=== PATIENT | male | born 1955 | race Caucasian/White ===

== ENCOUNTER 2019-12-29 08:38 | Outpatient (REF) | payer MEDICARE, SELFPAY ==
--- NOTE | 2019-12-29 08:49 | US_ITS ---
EXAMINATION: US RETROPERITONEAL LIMITED (AORTA) CLINICAL INFORMATION: AAA screening. COMPARISON: None TECHNIQUE: Ni-scale, color Doppler and spectral Doppler evaluation of the abdominal aorta. FINDINGS: The measurements of the aorta in maximum AP and transverse dimensions respectively are as follows: Proximal: 2.7 x 3.1 cm. Mid: 2.2 x 2.8 cm. Distal: 1.8 x 2.3 cm. PSV: 123 cm/s. The measurements of the common iliac arteries in maximum AP and TRV dimensions are as follows: Right Common Iliac Artery: 1.2 x 1.1 cm. Left Common Iliac Artery: 1.2 x 1.0 cm. Incidental finding of the right hepatic lobe cyst measuring 2.0 x 3.3 x 2.2 cm US/US aorta IMPRESSION: No evidence of AAA. Incidental finding of a right hepatic cyst.
== END 2019-12-29 08:39 | disposition home or self-care (01) ==
LOC: HO.US 08:38
PROVIDERS: PCP Internal Medicine; Visit Provider Internal Medicine
DX: Z13.6 Encounter for screening for cardiovascular disorders (principal)
CPT/HCPCS: 76775

== ENCOUNTER 2020-04-13 09:40 | Outpatient (REF) | payer MEDICARE, SELFPAY ==
[2020-04-13 10:26] LABS: Estimated Average Glucose 160 mg/dL; Hemoglobin A1c % 7.2 %
[2020-04-13 10:47] LABS: Alanine Aminotransferase 19 U/L (0-40); Albumin Level 4.4 g/dL (3.5-5.0); Alkaline Phosphatase 51 U/L (39-117); Anion Gap 13 (12-20); Aspartate Amino Transferase 14 U/L (5-37); Bilirubin Total 0.7 mg/dL (0.0-1.0); Blood Urea Nitrogen 17 mg/dL (9-16); Calcium 9.2 mg/dL (8.4-10.2); Carbon Dioxide 26 mmol/L (22-29); Chloride 103 mmol/L (96-108); Cholesterol 149 mg/dL; Estimated Glomerular Filt Rate > 60; Glucose Random 203 mg/dL (60-115); HDL Cholesterol 45 mg/dL; LDL Cholesterol Calculated 74 mg/dl; Potassium 4.1 mmol/L (3.3-5.1); Sodium 138 mmol/L (135-145); Triglycerides 152 mg/dL
[2020-04-13 10:47] LABS: Creatinine Urine 118.79 mg/dL
== END 2020-04-13 09:41 | disposition home or self-care (01) ==
LOC: HO.LAB 09:40
PROVIDERS: PCP Internal Medicine; Visit Provider Internal Medicine Endocrinology, Diabetes & Metabolism
DX: E11.9 Type 2 diabetes mellitus without complications (principal)
CPT/HCPCS: 36415; 80053; 80061; 82043; 83036

== ENCOUNTER 2020-07-25 10:46 | Outpatient (REF) | payer MEDICARE, SELFPAY ==
[2020-07-25 12:01] LABS: Estimated Average Glucose 186 mg/dL; Hemoglobin A1c % 8.1 %
[2020-07-25 12:22] LABS: Alanine Aminotransferase 19 U/L (0-40); Albumin Level 4.3 g/dL (3.5-5.0); Alkaline Phosphatase 63 U/L (39-117); Anion Gap 12 (12-20); Aspartate Amino Transferase 13 U/L (5-37); Bilirubin Total 0.6 mg/dL (0.0-1.0); Blood Urea Nitrogen 18 mg/dL (9-16); Calcium 9.1 mg/dL (8.4-10.2); Carbon Dioxide 26 mmol/L (22-29); Chloride 105 mmol/L (96-108); Estimated Glomerular Filt Rate > 60; Glucose Random 225 mg/dL (60-115); Potassium 3.6 mmol/L (3.3-5.1); Sodium 139 mmol/L (135-145); Total Protein 6.7 g/dL (6.5-8.0)
== END 2020-07-25 10:47 | disposition home or self-care (01) ==
LOC: HO.LAB 10:46
PROVIDERS: Absent Provider Internal Medicine Endocrinology, Diabetes & Metabolism; PCP Internal Medicine; Visit Provider Internal Medicine
DX: E11.9 Type 2 diabetes mellitus without complications (principal); K21.9 Gastro-esophageal reflux disease without esophagitis
CPT/HCPCS: 36415; 80053; 83036

== ENCOUNTER 2020-11-01 10:14 | Outpatient (REF) | payer MEDICARE, SELFPAY ==
[2020-11-01 10:43] LABS: MANUAL DIFF FLAG NO
[2020-11-01 10:46] LABS: Basophils Percent Auto 0.6 % (0-2); Eosinophils Absolute Auto 0.3 X10*3/uL (0.0-0.4); Hematocrit 40.8 % (42-52); Hemoglobin 14.6 g/dl (14.0-18.0); Imm Gran Abs Auto 0.01 X10*3/uL (0.00-0.03); Imm Gran Pct Auto 0.2 % (0.0-0.4); Lymphocytes Absolute Auto 1.1 X10*3/uL (1.2-4.9); Lymphocytes Percent Auto 20.7 % (20-40); Mean Corpuscular HGB Conc 35.8 g/dl (31.0-36.0); Mean Corpuscular Hemoglobin 33.2 pg (27.0-33.0); Mean Corpuscular Volume 92.7 fL (80-98); Mean Platelet Volume 10.7 fL (9.4-12.4); Monocytes Absolute Auto 0.5 X10*3/uL (0.1-1.2); Monocytes Percent Auto 8.5 % (2-11); Neutrophils Absolute Auto 3.5 X10*3/uL (2.0-8.3); Platelet Count 136 X10*3/uL (160-400); Red Cell Distribution Width 12.7 % (11.0-16.0); White Blood Count 5.4 X10*3/uL (4.8-10.8)
[2020-11-01 10:54] LABS: Estimated Average Glucose 154 mg/dL
[2020-11-01 11:10] LABS: Alanine Aminotransferase 28 U/L (0-40); Albumin Level 4.3 g/dL (3.5-5.0); Alkaline Phosphatase 55 U/L (39-117); Anion Gap 13 (12-20); Aspartate Amino Transferase 21 U/L (5-37); Bilirubin Total 0.6 mg/dL (0.0-1.0); Blood Urea Nitrogen 15 mg/dL (9-16); Calcium 9.4 mg/dL (8.4-10.2); Carbon Dioxide 26 mmol/L (22-29); Chloride 105 mmol/L (96-108); Cholesterol 133 mg/dL; Estimated Glomerular Filt Rate > 60; Glucose Random 190 mg/dL (60-115); HDL Cholesterol 43 mg/dL; LDL Cholesterol Calculated 58 mg/dl; Potassium 3.9 mmol/L (3.3-5.1); Sodium 140 mmol/L (135-145); Total Protein 6.8 g/dL (6.5-8.0); Triglycerides 164 mg/dL
[2020-11-01 11:30] LABS: Thyroid Stimulating Hormone 2.45 uIU/mL (0.32-4.0)
[2020-11-01 12:30] LABS: Creatinine Urine 105.15 mg/dL; Microalbum/Creatinine Ratio Ur 16.1 ug/mg cr
== END 2020-11-01 10:15 | disposition home or self-care (01) ==
LOC: HO.LAB 10:14
PROVIDERS: PCP Internal Medicine; Visit Provider Internal Medicine
DX: E78.2 Mixed hyperlipidemia (principal); I10 Essential (primary) hypertension; E11.9 Type 2 diabetes mellitus without complications
CPT/HCPCS: 36415; 80053; 80061; 82043; 83036; 84443; 85025

== ENCOUNTER 2021-02-14 10:20 | Outpatient (REF) | payer MEDICARE, SELFPAY ==
[2021-02-14 11:37] LABS: MANUAL DIFF FLAG NO
[2021-02-14 11:48] LABS: Basophils Absolute Auto 0.1 X10*3/uL (0.0-0.2); Basophils Percent Auto 0.9 % (0-2); Eosinophils Absolute Auto 0.2 X10*3/uL (0.0-0.4); Eosinophils Percent Auto 3.6 % (0-4); Hematocrit 43.2 % (42.0-52.0); Hemoglobin 15.4 g/dl (14.0-18.0); Imm Gran Abs Auto 0.02 X10*3/uL (0.00-0.03); Imm Gran Pct Auto 0.3 % (0.0-0.4); Lymphocytes Absolute Auto 1.4 X10*3/uL (1.2-4.9); Lymphocytes Percent Auto 20.1 % (20-40); Mean Corpuscular HGB Conc 35.6 g/dl (31.0-36.0); Mean Corpuscular Volume 92.5 fL (80.0-98.0); Mean Platelet Volume 11.6 fL (9.4-12.4); Monocytes Absolute Auto 0.5 X10*3/uL (0.1-1.2); Monocytes Percent Auto 7.2 % (2-11); Neutrophils Absolute Auto 4.6 x10*3/uL (2.0-8.3); Neutrophils Percent Auto 67.9 % (45-73); Platelet Count 159 X10*3/uL (160-400); Red Blood Count 4.67 X10*6/uL (4.60-5.80); Red Cell Distribution Width 12.5 % (11.0-16.0); White Blood Count 6.7 X10*3/uL (4.8-10.8)
[2021-02-14 12:15] LABS: Alanine Aminotransferase 21 U/L (0-40); Albumin Level 4.3 g/dL (3.5-5.0); Alkaline Phosphatase 53 U/L (39-117); Anion Gap 15 (12-20); Aspartate Amino Transferase 16 U/L (5-37); Bilirubin Total 0.7 mg/dL (0.0-1.0); Blood Urea Nitrogen 16 mg/dL (9-16); Calcium 9.4 mg/dL (8.4-10.2); Carbon Dioxide 25 mmol/L (22-29); Chloride 104 mmol/L (96-108); Estimated Glomerular Filt Rate > 60; Glucose Random 188 mg/dL (60-115); Potassium 3.8 mmol/L (3.3-5.1); Sodium 140 mmol/L (135-145)
[2021-02-14 12:20] LABS: Prostate Specific Antigen 3.94 ng/mL (<0.05-4.0)
[2021-02-14 12:21] LABS: Creatinine Urine 139.01 mg/dL; Microalbum/Creatinine Ratio Ur 51.7 ug/mg cr; Protein/Creatinine Ratio, Ur 0.12 (<0.2); Total Protein Urine Random 17 mg/dL (<12)
[2021-02-14 14:05] LABS: Estimated Average Glucose 166 mg/dL; Hemoglobin A1c % 7.4 %
== END 2021-02-14 10:21 | disposition home or self-care (01) ==
LOC: HO.HMGCLDS 10:20
PROVIDERS: Absent Provider Urology; PCP Internal Medicine; Visit Provider Internal Medicine
DX: Z12.5 Encounter for screening for malignant neoplasm of prostate (principal); I10 Essential (primary) hypertension; E11.9 Type 2 diabetes mellitus without complications; R97.20 Elevated prostate specific antigen [PSA]
CPT/HCPCS: 36415; 80053; 82043; 83036; 84153; 84156; 85025

== ENCOUNTER 2021-05-23 09:44 | Outpatient (REF) | payer MEDICARE, SELFPAY ==
[2021-05-23 12:01] LABS: Estimated Average Glucose 154 mg/dL
== END 2021-05-23 09:45 | disposition home or self-care (01) ==
LOC: HO.HMGCLDS 09:44
PROVIDERS: PCP Internal Medicine; Visit Provider Internal Medicine Endocrinology, Diabetes & Metabolism
DX: E11.65 Type 2 diabetes mellitus with hyperglycemia (principal)
CPT/HCPCS: 36415; 83036

== ENCOUNTER 2021-08-05 10:47 | Outpatient (REF) | payer MEDICARE, SELFPAY ==
[2021-08-05 13:37] LABS: MANUAL DIFF FLAG NO
[2021-08-05 13:42] LABS: Basophils Percent Auto 0.6 % (0-2); Eosinophils Absolute Auto 0.2 X10*3/uL (0.0-0.4); Eosinophils Percent Auto 3.2 % (0-4); Hematocrit 41.8 % (42.0-52.0); Hemoglobin 14.4 g/dl (14.0-18.0); Imm Gran Abs Auto 0.03 X10*3/uL (0.00-0.03); Imm Gran Pct Auto 0.4 % (0.0-0.4); Lymphocytes Absolute Auto 1.5 X10*3/uL (1.2-4.9); Lymphocytes Percent Auto 21.3 % (20-40); Mean Corpuscular HGB Conc 34.4 g/dl (31.0-36.0); Mean Corpuscular Hemoglobin 32.1 pg (27.0-33.0); Mean Corpuscular Volume 93.1 fL (80.0-98.0); Mean Platelet Volume 11.7 fL (9.4-12.4); Monocytes Absolute Auto 0.4 X10*3/uL (0.1-1.2); Monocytes Percent Auto 6.5 % (2-11); Neutrophils Absolute Auto 4.6 x10*3/uL (2.0-8.3); Platelet Count 161 X10*3/uL (160-400); Red Blood Count 4.49 X10*6/uL (4.60-5.80); Red Cell Distribution Width 13.1 % (11.0-16.0); White Blood Count 6.8 X10*3/uL (4.8-10.8)
[2021-08-05 14:13] LABS: Thyroid Stimulating Hormone 2.36 uIU/mL (0.32-4.0)
[2021-08-05 14:26] LABS: Alanine Aminotransferase 19 U/L (0-40); Albumin Level 4.2 g/dL (3.5-5.0); Alkaline Phosphatase 49 U/L (39-117); Anion Gap 15 (12-20); Aspartate Amino Transferase 14 U/L (5-37); Bilirubin Total 0.7 mg/dL (0.0-1.0); Blood Urea Nitrogen 19 mg/dL (9-16); Calcium 9.5 mg/dL (8.4-10.2); Carbon Dioxide 24 mmol/L (22-29); Chloride 106 mmol/L (96-108); Cholesterol 118 mg/dL; Estimated Glomerular Filt Rate > 60; Glucose Random 149 mg/dL (60-115); HDL Cholesterol 39 mg/dL; LDL Cholesterol Calculated 57 mg/dl; Magnesium 1.4 mg/dL (1.6-2.6); Sodium 141 mmol/L (135-145); Total Protein 6.8 g/dL (6.5-8.0); Triglycerides 113 mg/dL
[2021-08-05 14:34] LABS: Creatinine Urine 179.54 mg/dL; Microalbum/Creatinine Ratio Ur 11.6 ug/mg cr
== END 2021-08-05 10:48 | disposition home or self-care (01) ==
LOC: HO.HMGCLDS 10:47
PROVIDERS: Absent Provider Internal Medicine Endocrinology, Diabetes & Metabolism; Visit Provider Internal Medicine
DX: E11.9 Type 2 diabetes mellitus without complications (principal); I10 Essential (primary) hypertension
CPT/HCPCS: 36415; 80053; 80061; 82043; 83735; 84443; 85025

== ENCOUNTER 2021-08-25 10:50 | Outpatient (REF) | payer MEDICARE, SELFPAY ==
[2021-08-25 14:10] LABS: Estimated Average Glucose 146 mg/dL; Hemoglobin A1c % 6.7 %
[2021-08-25 14:17] LABS: C Reactive Protein 0.42 mg/dL (< or = 0.50); Magnesium 1.5 mg/dL (1.6-2.6)
[2021-08-25 14:40] LABS: Erythrocyte Sedimentation Rate 9 MM/HR (0-15)
== END 2021-08-25 10:51 | disposition home or self-care (01) ==
LOC: HO.HMGCLDS 10:50
PROVIDERS: Visit Provider Internal Medicine
DX: E11.9 Type 2 diabetes mellitus without complications (principal); E83.42 Hypomagnesemia; M79.10 Myalgia, unspecified site
CPT/HCPCS: 36415; 82550; 83036; 83735; 85652; 86140

== ENCOUNTER 2021-09-05 11:22 | Outpatient (REF) | payer MEDICARE, SELFPAY ==
[2021-09-05 14:26] LABS: Vitamin D 25-OH Total 47.1 ng/mL (>30)
[2021-09-07 05:12] LABS: Lyme Abs Screen <0.90 index
== END 2021-09-05 11:23 | disposition home or self-care (01) ==
LOC: HO.HMGCLDS 11:22
PROVIDERS: PCP Internal Medicine; Visit Provider Internal Medicine
DX: M79.10 Myalgia, unspecified site (principal); E55.9 Vitamin D deficiency, unspecified
CPT/HCPCS: 36415; 82306; 86617; 86618

== ENCOUNTER 2021-10-06 13:13 | Outpatient (REF) | payer MEDICARE, SELFPAY ==
[2021-10-06 15:20] LABS: Magnesium 1.5 mg/dL (1.6-2.6)
== END 2021-10-06 13:14 | disposition home or self-care (01) ==
LOC: HO.HMGCLDS 13:13
PROVIDERS: PCP Internal Medicine; Visit Provider Internal Medicine
DX: I10 Essential (primary) hypertension (principal); E83.52 Hypercalcemia
CPT/HCPCS: 36415; 83735

== ENCOUNTER 2022-09-07 11:42 | Outpatient (REF) | payer MEDICARE, SELFPAY ==
[2022-09-07 14:53] LABS: Alanine Aminotransferase 12 U/L (0-40); Albumin Level 4.1 g/dL (3.5-5.0); Alkaline Phosphatase 60 U/L (39-117); Anion Gap 15 (12-20); Aspartate Amino Transferase 9 U/L (5-37); Bilirubin Direct 0.3 mg/dL (0.0-0.5); Bilirubin Total 0.9 mg/dL (0.0-1.0); Blood Urea Nitrogen 14 mg/dL (9-16); Calcium 9.8 mg/dL (8.4-10.2); Carbon Dioxide 25 mmol/L (22-29); Chloride 104 mmol/L (96-108); Estimated Glomerular Filt Rate > 60; Glucose Random 199 mg/dL (60-115); Potassium 3.6 mmol/L (3.3-5.1); Sodium 140 mmol/L (135-145); Total Protein 7.2 g/dL (6.5-8.0)
== END 2022-09-07 11:43 | disposition home or self-care (01) ==
LOC: HO.HMGCLDS 11:42
PROVIDERS: PCP Internal Medicine; Visit Provider Internal Medicine
DX: R10.9 Unspecified abdominal pain (principal)
CPT/HCPCS: 36415; 80048; 80076; 85027; 85652

== ENCOUNTER 2023-07-02 08:12 | Day surgery (SDC) | payer MEDICARE, SELFPAY ==
[2023-07-01 07:55] VITALS: BMI 34.4
[2023-07-02 08:51] VITALS: BMI 34.4
--- NOTE | 2023-07-02 08:57 | HO.ANESPROP2 ---
FORMERLY [facility], LATER [facility] Active Problems Active Problems: All Active Problems Abdominal pain (Acute) Tinea corporis (Acute) Past Medical History Medical History History of deviated nasal septum Prostate cancer Sleep apnea Vertigo Sinusitis GERD (gastroesophageal reflux disease) Diabetes Irregular heartbeat Hyperlipidemia HTN (hypertension) Tubular adenoma Functional capacity: independent ambulation Family History Family history of problems with anesthesia: No Surgical History Surgical History Hx of cataract surgery Hx of umbilical hernia repair Hx of LASIK History of tonsillectomy and adenoidectomy Hx of cholecystectomy History of esophagogastroduodenoscopy (EGD) H/O colonoscopy History of Problems with Anesthesia: No Social History Social History Patient Tobacco Use Status: Former Tobacco user Are you DNR?: No Advance Directives: No Advance Directives Information Provided: No Advance Directives on File: No Nutrition Risks: No Nutritional Risk Meds Allergies Allergy/AdvReac Type Severity Reaction Status Date / Time canagliflozin [From INVOKANA] Allergy Intermediate MUSCLE/JOINT Unverified 09/07/22 11:57 PAIN irbesartan [IRBESARTAN] Allergy Intermediate MUSCLE/JOINT Unverified 09/07/22 11:57 PAIN lisinopril [LISINOPRIL] Allergy Intermediate ABDOMINAL Unverified 09/07/22 11:57 PAIN losartan [LOSARTAN] Allergy Intermediate MUSCLE/JOINT Unverified 09/07/22 11:57 PAIN Penicillins [PENICILLINS] Allergy Intermediate UNKNOWN Unverified 09/07/22 11:57 pravastatin [PRAVASTATIN] Allergy Intermediate ABDOMINAL Unverified 09/07/22 11:57 PAIN rosuvastatin [From CRESTOR] Allergy Intermediate DIARRHEA Unverified 09/07/22 11:57 simvastatin [SIMVASTATIN] Allergy Intermediate ABDOMINAL Unverified 09/07/22 11:57 PAIN penicillin V Allergy Unknown Unknown Verified 09/07/22 11:57 Active Medications: Current Medications Sodium Biphosphate/Sodium Phosphate (Sodium Phosphate,[place]-Dibasic 133 Ml Enema) 133 ml [place] ONCE PRN PRN Reason: Poor Colonoscopy Prep Results Home Medications ?Medication ?Instructions ?Recorded ?Confirmed ?Last Taken ?Type amlodipine 2.5 mg tablet 2.5 mg PO DAILY 08/17/22 07/01/23 Unknown History atorvastatin 10 mg tablet 10 mg PO DAILY 08/17/22 07/01/23 Unknown History blood sugar diagnostic (OneTouch #10 ea 08/17/22 09/07/22 Unknown History Verio test strips) bupropion HCl 150 mg tablet,12 hr 150 mg PO BID 08/17/22 07/01/23 Unknown History sustained-release chlorthalidone 25 mg tablet 25 mg PO DAILY 08/17/22 09/07/22 Unknown History fluticasone propionate 50 1 spray intranasal DAILY 08/17/22 07/01/23 Unknown History mcg/actuation nasal spray,suspension insulin degludec 100 unit/mL (3 unit subcut 08/17/22 09/07/22 Unknown History mL) subcutaneous pen (Tresiba FlexTouch U-100 insulin) meclizine 25 mg tablet 25 mg PO TID PRN dizziness 08/17/22 07/01/23 Unknown History nadolol 40 mg tablet 40 mg PO DAILY 08/17/22 07/01/23 07/02/23 History omeprazole 20 mg capsule,delayed 20 mg PO DAILY 08/17/22 07/01/23 Unknown History release pen needle, diabetic 32 gauge x #50 ea 08/17/22 09/07/22 Unknown History (BD [employer] 2nd Gen Pen Needle) tamsulosin 0.4 mg capsule 0.4 mg PO DAILY 08/17/22 07/01/23 Unknown History Suphedrin 07/01/23 07/01/23 Unknown History aspirin 81 mg tablet,delayed 81 mg PO DAILY 07/01/23 07/01/23 06/25/23 History release cetirizine 10 mg tablet (Zyrtec) 10 mg PO DAILY 07/01/23 07/01/23 Unknown History cyanocobalamin (vitamin B-12) 50 50 mcg PO DAILY 07/01/23 07/01/23 Unknown History mcg tablet (Vitamin B-12) glucosamine sulf dipot cap PO 07/01/23 Unknown History chlr,msm,chond 550 mg-C 30 mg-umair 1 mg capsule (Glucosamine Chondroitin) gsinomoj-uoyaysuv-wtsks acid 400 1 tab PO DAILY 07/01/23 07/01/23 Unknown History mcg-vit K 20 mcg-lycop 300 mcg tablet Exam Height,Weight and Vital Signs: Height 6 ft Weight 115.212 kg Airway Mallampati Class: III TM Dist: >3cm Neck ROM: Full Heart: irreg Lungs: CTA Assessment and Plan Assessment Anesthesia Assessment: Anesthesia Plan Discussed Final Anesthetic Review Family History of Problems with Anesthesia: No History of Problems with Anesthesia: No NPO: Yes ASA Class: III Final Preanesthetic Review: Meds/Allgs Chart Reviewed, Consent Obtained/Reviewed and Anes Risks/Benef Reviewed Patient Risk: Intermediate Procedure Risk: Low Anesthetic Plan Anesthetic Plan: MAC: Disposition: Standard PACU
--- NOTE | 2023-07-02 09:12 | P.CONAN_ITS ---
[facility] Active Problems Active Problems: All Active Problems Abdominal pain (Acute) Tinea corporis (Acute) Past Medical History Medical History History of deviated nasal septum Prostate cancer Sleep apnea Vertigo Sinusitis GERD (gastroesophageal reflux disease) Diabetes Irregular heartbeat Hyperlipidemia HTN (hypertension) Tubular adenoma Functional capacity: independent ambulation Family History Family history of problems with anesthesia: No Surgical History Surgical History Hx of cataract surgery Hx of umbilical hernia repair Hx of LASIK History of tonsillectomy and adenoidectomy Hx of cholecystectomy History of esophagogastroduodenoscopy (EGD) H/O colonoscopy History of Problems with Anesthesia: No Social History Social History Patient Tobacco Use Status: Former Tobacco user Are you DNR?: No Advance Directives: No Advance Directives Information Provided: No Advance Directives on File: No Nutrition Risks: No Nutritional Risk Meds Allergies Allergy/AdvReac Type Severity Reaction Status Date / Time canagliflozin [From INVOKANA] Allergy Intermediate MUSCLE/JOINT Verified 07/02/23 09:36 PAIN irbesartan [IRBESARTAN] Allergy Intermediate MUSCLE/JOINT Verified 07/02/23 09:36 PAIN lisinopril [LISINOPRIL] Allergy Intermediate ABDOMINAL Verified 07/02/23 09:36 PAIN losartan [LOSARTAN] Allergy Intermediate MUSCLE/JOINT Verified 07/02/23 09:36 PAIN Penicillins [PENICILLINS] Allergy Intermediate UNKNOWN Verified 07/02/23 09:36 pravastatin [PRAVASTATIN] Allergy Intermediate ABDOMINAL Verified 07/02/23 09:36 PAIN rosuvastatin [From CRESTOR] Allergy Intermediate DIARRHEA Verified 07/02/23 09:36 simvastatin [SIMVASTATIN] Allergy Intermediate ABDOMINAL Verified 07/02/23 09:36 PAIN penicillin V Allergy Unknown Unknown Verified 07/02/23 09:36 Active Medications: Current Medications Sodium Biphosphate/Sodium Phosphate (Sodium Phosphate,[place]-Dibasic 133 Ml Enema) 133 ml [place] ONCE PRN PRN Reason: Poor Colonoscopy Prep Results Home Medications ?Medication ?Instructions ?Recorded ?Confirmed ?Last Taken ?Type amlodipine 2.5 mg tablet 2.5 mg PO DAILY 08/17/22 07/01/23 Unknown History atorvastatin 10 mg tablet 10 mg PO DAILY 08/17/22 07/01/23 Unknown History blood sugar diagnostic (OneTouch #10 ea 08/17/22 09/07/22 Unknown History Verio test strips) bupropion HCl 150 mg tablet,12 hr 150 mg PO BID 08/17/22 07/01/23 Unknown History sustained-release chlorthalidone 25 mg tablet 25 mg PO DAILY 08/17/22 09/07/22 Unknown History fluticasone propionate 50 1 spray intranasal DAILY 08/17/22 07/01/23 Unknown History mcg/actuation nasal spray,suspension insulin degludec 100 unit/mL (3 unit subcut 08/17/22 09/07/22 Unknown History mL) subcutaneous pen (Tresiba FlexTouch U-100 insulin) meclizine 25 mg tablet 25 mg PO TID PRN dizziness 08/17/22 07/01/23 Unknown History nadolol 40 mg tablet 40 mg PO DAILY 08/17/22 07/01/23 07/02/23 History omeprazole 20 mg capsule,delayed 20 mg PO DAILY 08/17/22 07/01/23 Unknown History release pen needle, diabetic 32 gauge x #50 ea 08/17/22 09/07/22 Unknown History (BD [employer] 2nd Gen Pen Needle) tamsulosin 0.4 mg capsule 0.4 mg PO DAILY 08/17/22 07/01/23 Unknown History Suphedrin 07/01/23 07/01/23 Unknown History aspirin 81 mg tablet,delayed 81 mg PO DAILY 07/01/23 07/01/23 06/25/23 History release cetirizine 10 mg tablet (Zyrtec) 10 mg PO DAILY 07/01/23 07/01/23 Unknown History cyanocobalamin (vitamin B-12) 50 50 mcg PO DAILY 07/01/23 07/01/23 Unknown History mcg tablet (Vitamin B-12) glucosamine sulf dipot cap PO 07/01/23 Unknown History chlr,msm,chond 550 mg-C 30 mg-umair 1 mg capsule (Glucosamine Chondroitin) cfxcbctj-kpgmimjg-agqti acid 400 1 tab PO DAILY 07/01/23 07/01/23 Unknown History mcg-vit K 20 mcg-lycop 300 mcg tablet Exam Height,Weight and Vital Signs: Height 6 ft Weight 115.212 kg Assessment and Plan Final Anesthetic Review Family History of Problems with Anesthesia: No History of Problems with Anesthesia: No
[2023-07-02 09:25] VITALS: BP 154/67; PULSE 58; RESP 18; TEMP 36.6; O2SAT 96
[2023-07-02 09:28] LABS: Glucose, Whole Blood 128 mg/dL (60-115)
[2023-07-02 10:31] VITALS: BP 114/60; PULSE 54; RESP 16; TEMP 36.2; O2SAT 100
--- NOTE | 2023-07-02 10:31 | PM.OP ---
Brief Operative Note Date of Service: 07/02/23 Pre-op diagnosis: Screening Post-op diagnosis: other (Polyps) Procedure: Colonoscopy to the cecum with biopsies, and bx/removal of polyps Surgeon: Jose Ramon Valenzuela MD Anesthesia: MAC Was an Service Planner used for this Procedure?: No Estimated blood loss (mL): 2.0 Pathology: other (A. Ascending colon B. Transverse colon polyp C. Descending colon D. Polyp at 20cm) Condition: stable Disposition: PACU
[2023-07-02 10:45] VITALS: BP 139/67; PULSE 58; RESP 20; TEMP 36.6; O2SAT 95
--- NOTE | 2023-07-02 11:32 | OP_ITS ---
DATE OF SERVICE: 07/02/2023 SURGEON: Jose Ramon Valenzuela MD INDICATIONS: The patient presents for evaluation of colorectal cancer screening, personal history of tubular adenoma of the colon, and intermittent diarrhea. Full consent has been obtained from him for this, including risks of bleeding and perforation. PREOPERATIVE DIAGNOSIS: POSTOPERATIVE DIAGNOSIS: PROCEDURE PERFORMED: ESTIMATED BLOOD LOSS: COMPLICATIONS: ANESTHESIA: Monitored anesthesia care. ASSISTANTS: SPECIMENS: PREOPERATIVE DIAGNOSES: Colorectal cancer screening, history of tubular adenoma of the colon, and diarrhea. POSTOPERATIVE DIAGNOSES: Colorectal cancer screening, history of tubular adenoma of the colon, diarrhea, colon polyps, rule out microscopic colitis, diverticulosis, and internal hemorrhoids. PROCEDURES PERFORMED: Colonoscopy to the cecum with biopsies, and biopsy and removal of polyps. DESCRIPTION OF PROCEDURE: The patient was placed in the left lateral decubitus position. The digital rectal exam revealed no abnormalities. The [employer] video pediatric colonoscope was then entered into the rectum and advanced easily to the cecum. Once in the cecum, I did identify normal-appearing cecal pouch with appendiceal orifice and a normal-appearing ileocecal valve. The terminal ileum was cannulated and appeared normal. The scope was withdrawn back in the colon. The entire cecum and ileocecal valve appeared normal. The scope was slowly withdrawn assessing all mucosal surfaces carefully. Preparation was excellent. I did not visualize any sign of colitis nor angiodysplasia. In the transverse colon and at 20 cm, were flat less than 5 mm polyps, which were each biopsied and completely removed with the cold biopsy forceps. I also obtain random biopsies in the ascending and descending colon. There was a mild amount of sigmoid diverticulosis. In the rectum, the scope was retroflexed visualizing internal hemorrhoids, but no other pathology. The rectal mucosa appeared normal. The scope was straightened and withdrawn from the patient. He tolerated the procedure well and was returned to the recovery area in stable condition. IMPRESSION: 1. Colon polyps. 2. Rule out microscopic colitis. 3. Diverticulosis. 4. Internal hemorrhoids. PLAN: The results of the pathology will be checked. I would recommend a repeat colonoscopy in 5 years for further screening. He was advised to stay on a lactose-free diet. He was to have laboratories for celiac disease, but I do not see those in the computer and I will have him do those again as an outpatient. If things are stable, we will repeat this in 5 years for further screening. He will, otherwise, see me on a p.r.n. basis. MD REJI Goldberg/CARLENE / [id number]
== END 2023-07-02 11:20 | disposition home or self-care (01) ==
PROVIDERS: PCP Internal Medicine; Visit Provider Internal Medicine
PROC: 0DJD8ZZ Inspection of Lower Intestinal Tract, Via Natural or Artificial Opening Endoscopic (ICD-10-PCS; CPT 45378; principal; 2023-07-02 09:40)
DX: Z12.11 Encounter for screening for malignant neoplasm of colon (principal); Z86.010 Personal history of colon polyps; D12.3 Benign neoplasm of transverse colon; D12.5 Benign neoplasm of sigmoid colon; K57.30 Diverticulosis of large intestine without perforation or abscess without bleeding; K64.8 Other hemorrhoids; R19.7 Diarrhea, unspecified; K21.9 Gastro-esophageal reflux disease without esophagitis; C61 Malignant neoplasm of prostate; I10 Essential (primary) hypertension; E78.5 Hyperlipidemia, unspecified; J32.9 Chronic sinusitis, unspecified; Z87.891 Personal history of nicotine dependence; G47.30 Sleep apnea, unspecified; E11.9 Type 2 diabetes mellitus without complications; Z79.4 Long term (current) use of insulin; Z79.82 Long term (current) use of aspirin; Z79.899 Other long term (current) drug therapy; Z79.51 Long term (current) use of inhaled steroids; Z88.0 Allergy status to penicillin; Z88.8 Allergy status to other drugs, medicaments and biological substances; Z98.890 Other specified postprocedural states
CPT/HCPCS: 45380; 82947; 88305; J2704